=== PATIENT | female | born 1995 | race Caucasian/White ===

== ENCOUNTER 2018-01-15 13:10 | Emergency (ER) | payer MEDICAID ==
[2018-01-15 14:08] LABS: APPEARANCE HAZY (CLEAR); BILIRUBIN NEGATIVE (NEGATIVE); COLOR YELLOW (YELLOW); GLUCOSE NEGATIVE (NEGATIVE); KETONE NEGATIVE (NEGATIVE); NITRITE NEGATIVE (NEGATIVE); PROTEIN NEGATIVE (NEGATIVE); UROBILINOGEN NORMAL (NORMAL)
[2018-01-15 14:09] LABS: BACTERIA MODERATE /hpf (NONE SEEN); MUCUS <1+ /lpf (NONE SEEN); RED CELLS - URINE 0-5 /hpf (0-5)
[2018-01-15 15:01] LABS: HCG URINE NEGATIVE (NEGATIVE)
[2018-01-18 08:09] LABS: CHLAMYDIA TRACHOMATIS, NAA Negative (Negative)
== END 2018-01-15 15:11 | disposition home or self-care (01) ==
LOC: D.ER 13:10
PROVIDERS: Family Medicine; Physician Assistant
DX: N39.0 Urinary tract infection, site not specified (principal)

== ENCOUNTER 2018-09-17 23:45 | Emergency (ER) | payer MEDICAID ==
[~2018-09-17] VITALS: Ht 157.5 cm; Wt 76.4 kg
[2018-09-18 00:19] VITALS: Ht 157.5 cm; Wt 76.4 kg
[2018-09-18 00:43] LABS: APPEARANCE HAZY (CLEAR); BACTERIA FEW /hpf (NONE SEEN); BILIRUBIN NEGATIVE (NEGATIVE); COLOR PINK (YELLOW); EPITHELIAL CELLS 0-5 /hpf (0-5); GLUCOSE NEGATIVE (NEGATIVE); KETONE NEGATIVE (NEGATIVE); NITRITE NEGATIVE (NEGATIVE); PROTEIN NEGATIVE (NEGATIVE); RED CELLS - URINE >50 /hpf (0-5); SPECIFIC GRAVITY 1.015 (1.005-1.020); UROBILINOGEN NORMAL (NORMAL)
[2018-09-18 00:51] LABS: BASOPHILS 0.2 % (0-2); EOSINOPHILS 1.1 % (0-7); HEMATOCRIT 36.4 % (36.0-48.0); HEMOGLOBIN 11.8 g/dL (12-16); IMMATURE GRANULOCYTES 0.3 % (0-5); LYMPHOCYTES 22.9 % (15-50); MCH 29.5 pg (26.0-34.0); MCHC 32.4 g/dL (31.0-37.0); MEAN PLATELET VOLUME 9.4 fL (7.4-10.4); MONOCYTES 4.9 % (2-11); NEUTROPHILS 70.6 % (40-80); PLATELET COUNT 295 10x3/uL (130-400); RDW 12.5 % (11.5-14.5); WBC 11.4 10x3/uL (4.8-10.8)
[2018-09-18 00:59] LABS: HCG SERUM POSITIVE (NEGATIVE)
[2018-09-18 01:10] LABS: ALBUMIN 3.8 g/dL (3.4-5.0); ALKALINE PHOSPHATASE 59 U/L (46-116); ALT (SGPT) 21 U/L (10-68); BILIRUBIN - TOTAL 0.11 mg/dL (0.2-1.3); CALC OSMOLALITY 277 mosm/kg (275-300); CALCIUM 8.9 mg/dL (8.5-10.1); CARBON DIOXIDE 24.6 mmol/L (21.0-32.0); CHLORIDE - SERUM 102 mmol/L (98-107); CREATININE - SERUM 0.9 mg/dL (0.6-1.3); GLUCOSE 91 mg/dL (74-106); POTASSIUM - SERUM 3.9 mmol/L (3.5-5.1); PROTEIN - SERUM 7.8 g/dL (6.4-8.2); SODIUM 138 mmol/L (136-145); UREA NITROGEN 17 mg/dL (7-18); eGFR NON AFRICAN AMERICAN 84 mL/min (90-120)
[2018-09-18] MEDS ORDERED: MACROBID100 MG PO (01:24)
[2018-09-18 01:33] LABS: HCG - QUANTITATIVE (MATERNAL) 3667 mIU/mL
[2018-09-18 01:37] VITALS: BP 136/79
== END 2018-09-18 01:37 | disposition home or self-care (01) ==
LOC: D.ER 23:45
PROVIDERS: Emergency Medicine
DX: O20.0 Threatened abortion (principal); Z3A.01 Less than 8 weeks gestation of pregnancy; O23.41 Unspecified infection of urinary tract in pregnancy, first trimester